=== PATIENT | female | born 2005 | race Caucasian/White ===

== ENCOUNTER 2024-04-11 22:08 | Emergency (ER) | payer BC, MEDICAID | END 2024-04-11 23:28 | disposition home or self-care (01) | LOC: CSHERS 22:08 | DX: S93.401A Sprain of unspecified ligament of right ankle, initial encounter (principal); X50.1XXA Overexertion from prolonged static or awkward postures, initial encounter; Y93.01 Activity, walking, marching and hiking | CPT/HCPCS: 99283 ==